=== PATIENT | male | born 1950 | race Caucasian/White ===

== ENCOUNTER → 2017-04-15 | Day surgery (SDC) | payer BC ==
[~2017-04-15] MED LIST: ALLOPURINOL PO; ALLOPURINOL300 MG PO; AMLODIPINE BESY10 MG PO; ASCRIPTIN PO; ASPIR 8181 MG PO; ATENOLOL50 MG PO; CELEBREX200 MG PO; FENTANYL CITRATE/PF 100MCG/2 ML INJ ONE; FLEXERIL10 MG PO; GLIMEPIRIDE4 MG PO; GLUCOSAMINE PO; HYDROCHLOROTHIA25 MG PO; LIPITOR40 MG PO; LISINOPRIL40 MG PO; MIDAZOLAM HCL 2 MG/2 ML VIAL ONE; NORCO 10-325 T1 EACH PO; OR PHACO EYE KIT ONE; PREOP PHACO EYE KIT ONE; SKELAXIN800 MG PO
--- NOTE | 2017-04-16 09:11 | Operative Report ---
DATE OF PROCEDURE: April 15, 2017 PREOPERATIVE DIAGNOSIS: Visually significant cataract to the right eye. POSTOPERATIVE DIAGNOSIS: Visually significant cataract to the right eye. PROCEDURE: Complicated phacoemulsification with posterior chamber intraocular lens. ANESTHESIA: MAC. COMPLICATIONS: None. LENS: Braulio SN60WF, 17.5-diopter lens. PROCEDURE IN DETAIL: The patient was taken to the operating room where he had tetracaine 0.5% drops placed in the eye. The patient's eye was then prepped and draped in the usual sterile ophthalmic way. A lid speculum was placed in the eye. A side-port incision was made, and 0.2 mL of 1% lidocaine preservative free was injected in the anterior chamber. Secondary to the patient being on Flomax and poor dilation, a Malyugin ring was used to secure and dilate the pupil. Once this was in place, viscoelastic was placed in the anterior chamber. A keratome was used to make a temporal clear cornea incision. A cystotome and Utrata forceps were used to create an anterior capsulorrhexis without any complications. Hydrodissection and hydrodelineation were then performed, and a good fluid wave was noted. A phacoemulsification probe was placed in the eye, and the nucleus was phacoemulsified using the [id number]-yrt-[id number] technique. Irrigation and aspiration handpiece was then used to remove any residual cortical material. Viscoelastic was placed in the capsular bag. An Braulio SN60WF, 17.5-diopter lens was placed into the bag without any complications. The Malyugin ring was then removed. The irrigation and aspiration handpiece was used to remove any residual viscoelastic material from within the eye. Miostat was injected in the anterior chamber. The wound was checked to make sure there was no evidence of leakage. Two drops of Vigamox were placed in the eye, along with patch and Herndon shield. The patient tolerated the procedure well and will be seen in my office tomorrow. Job#: [id number]
== END | disposition home or self-care (01) ==
LOC: OR 10:00
PROVIDERS: ATTEND Ophthalmology
DX: H25.11 Age-related nuclear cataract, right eye (principal); I10 Essential (primary) hypertension; E11.9 Type 2 diabetes mellitus without complications; E78.5 Hyperlipidemia, unspecified; M10.9 Gout, unspecified; E66.01 Morbid (severe) obesity due to excess calories; G47.30 Sleep apnea, unspecified; D29.1 Benign neoplasm of prostate; Z79.82 Long term (current) use of aspirin; Z68.41 Body mass index [BMI] 40.0-44.9, adult
CPT/HCPCS: 66982; J2250; V2632

== ENCOUNTER → 2017-12-04 | Outpatient (CLI) | payer BC ==
[~2017-12-04] MED LIST changes: -FENTANYL CITRATE/PF 100MCG/2 ML INJ ONE; -MIDAZOLAM HCL 2 MG/2 ML VIAL ONE; -OR PHACO EYE KIT ONE; -PREOP PHACO EYE KIT ONE
--- NOTE | 2017-12-04 13:00 | Diagnostic Imaging Report ---
PROCEDURE:TESTICULAR DOPPLER ULTRASOUND COMPARISON:None. 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 Enrique Lazaro M.D. Dictated by: Enrique Lazaro M.D. on 12/04/2017 at 13:06 Electronically approved by: Enrique Lazaro M.D. on 12/04/2017 at 13:06
--- NOTE | 2017-12-04 13:00 | Diagnostic Imaging Report ---
PROCEDURE:TESTICULAR ULTRASOUND COMPARISON:None. 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 Lump in superior left testicle for 2 weeks TECHNIQUE: Whyte-scale and color doppler images of the testicles and scrotal contents were obtained. Duplex imaging with spectral waveform analysis was performed of the testicular arteries and veins. FINDINGS: RIGHT SCROTUM: Testicle: 3.5 x 3.0 x 3.6 cm. Normal echogenicity. Normal vascularity. No focal lesions. Epididymal head: 1.4 x 1.0 x 1.0 cm. Normal echogenicity. Normal vascularity. 0.5 x 0.4 x 0.8 cm cystic, anechoic lesion in the epididymal head. Hydrocele: None Varicocele: None LEFT SCROTUM: Testicle: 5.1 x 2.5 x 4.0 cm. Normal echogenicity. Normal vascularity. No focal lesions. Epididymal head: 1.8 x 1.1 x 1.2 cm. Normal echogenicity. Normal vascularity. 0.7 x 0.4 x 0.8 cm cystic, anechoic lesion in the left epididymal head. Hydrocele: None Varicocele: A left varicocele is identified. Normal bilateral arterial and venous flow is documented. Overlying skin is unremarkable. No evidence of inguinal hernia. CONCLUSION: 1. Left varicocele. 2. 0.8 cm right and 0.8 cm left epididymal head cysts versus spermatoceles. 3. Normal bilateral testicular size, and echogenicity. No evidence of torsion. Enrique Lazaro M.D. Dictated by: Enrique Lazaro M.D. on 12/04/2017 at 13:05 Electronically approved by: Enrique Lazaro M.D. on 12/04/2017 at 13:05
== END ==
LOC: US 11:50
PROVIDERS: ATTEND Urology
DX: D40.10 Neoplasm of uncertain behavior of unspecified testis (principal)
CPT/HCPCS: 76870; 93976

== ENCOUNTER 2018-02-02 03:11 | Observation (INO) | payer BC ==
[~2018-02-02] VITALS: Ht 177.8 cm; Wt 143.4 kg
[2018-02-02] VITALS (7 sets, daily range): BP systolic 120–134; BP diastolic 60–73
[2018-02-02] MEDS ORDERED: PANTOPRAZOLE 40 MG 10ML VIAL IV STA (03:19)
[2018-02-02] MEDS ORDERED: ASPIRIN 81 MG CHEW TAB PO STA (03:19)
[2018-02-02] MEDS ORDERED: ONDANSETRON HCL INJ 2 MG/ML VIAL IV STA (03:19)
[2018-02-02] MEDS ORDERED: MORPHINE SULFATE 2 MG/ML SYR IV STA ×2 (03:19→04:32)
[2018-02-02] MEDS ORDERED: SODIUM CHLORIDE 0.9% 1000ML 1,000 ML IV STA (03:19)
[2018-02-02 03:36] LABS: BASOPHILS # (AUTO) 0.1 (0.0-0.1); BASOPHILS % 0.5 % (0.0-1.0); EOSINOPHILS % 6.1 % (0.0-6.0); HEMATOCRIT 48.4 % (38.2-49.6); HEMOGLOBIN 16.1 g/dL (14.0-18.0); LYMPHOCYTES # (AUTO) 1.8 (1.0-3.2); LYMPHOCYTES % 11.4 % (18.0-39.1); MEAN CORPUSCULAR HEMOGLOBIN 30.4 pg (28-32); MEAN CORPUSCULAR HGB CONC 33.3 g/dL (31-35); MEAN CORPUSCULAR VOLUME 91.5 fL (81-99); MONOCYTES # (AUTO) 1.9 (0.2-0.8); MONOCYTES % 11.7 % (4.4-11.3); NEUTROPHILS # (AUTO) 11.3 (2.1-6.9); NEUTROPHILS % 69.9 % (38.7-80.0); PLATELET COUNT 222 x10e3/uL (140-360); RED BLOOD COUNT 5.29 x10e6/uL (4.3-5.7); RED CELL DISTRIBUTION WIDTH 13.9 % (11.7-14.4)
[2018-02-02 03:48] LABS: INR 0.87; PROTHROMBIN TIME 12.7 seconds (11.9-14.5)
[2018-02-02 03:49] LABS: PARTIAL THROMBOPLASTIN TIME 26.6 seconds (23.8-35.5)
[2018-02-02 03:56] LABS: ALANINE AMINOTRANSFERASE 35 IU/L (0-55); ALBUMIN/GLOBULIN RATIO 1.1 (0.8-2.0); ALKALINE PHOSPHATASE 65 IU/L (40-150); ANION GAP 10.4 mmol/L (8-16); BLOOD UREA NITROGEN 14 mg/dL (7-26); BUN/CREATININE RATIO 17 (6-25); CALCIUM 9.6 mg/dL (8.4-10.2); CARBON DIOXIDE 32 mmol/L (22-29); CHLORIDE 97 mmol/L (98-107); CREATINE KINASE 406 IU/L (30-200); CREATININE, SERUM 0.82 mg/dL (0.72-1.25); EST GLOMERULAR FILTRATION RATE > 60 ML/MIN (60-); GLUCOSE 163 mg/dL (74-118); POTASSIUM 3.4 mmol/L (3.5-5.1); SODIUM 136 mmol/L (136-145)
[2018-02-02 04:08] LABS: B-TYPE NATRIURETIC PEPTIDE2 65.5 pg/mL (0-100)
[2018-02-02 04:08] LABS: AMYLASE 63 U/L (25-125); LIPASE 23 U/L (8-78)
[2018-02-02] MEDS ORDERED: KETOROLAC TROMETHAMINE 30 MG/ML VIAL IV STA (04:32)
[2018-02-02] MEDS ORDERED: MORPHINE SULFATE 2 MG/ML SYR IV PRN (05:00)
[2018-02-02] MEDS ORDERED: ONDANSETRON HCL INJ 2 MG/ML VIAL IV PRN (05:00)
[2018-02-02] MEDS ORDERED: DEXTROSE 50% SYRINGE 50 ML IV PRN (05:00)
[2018-02-02] MEDS ORDERED: KCL 20MEQ/.9 SOD CHL 1,000 ML IV ONE (05:00)
[2018-02-02] MEDS ORDERED: ALLOPURINOL300 MG PO (05:08)
[2018-02-02] MEDS ORDERED: HYDROCHLOROTHIA50 MG PO (05:08)
[2018-02-02] MEDS ORDERED: ATENOLOL100 MG PO (05:08)
[2018-02-02] MEDS ORDERED: TAMSULOSIN HCL0.4 MG PO (05:08)
[2018-02-02] MEDS ORDERED: ATORVASTATIN CA80 MG PO (05:08)
[2018-02-02 05:10] LABS: CLARITY,URINE CLEAR (CLEAR); COLOR,URINE YELLOW (YELLOW); KETONES,URINE NEGATIVE (NEGATIVE); LEUKOCYTE ESTERASE ,URINE NEGATIVE (NEGATIVE); NITRITE,URINE NEGATIVE (NEGATIVE); PROTEIN,URINE DIPSTICK NEGATIVE (NEGATIVE)
[2018-02-02 05:11] LABS: BILIRUBIN,URINE NEGATIVE (NEGATIVE); URINE UROBILINOGEN 0.2 mg/dL (0.2 - 1)
[2018-02-02] MEDS ORDERED: GLUCOSAMINE HC500 MG PO (05:17)
[2018-02-02] MEDS ORDERED: LISINOPRIL20 MG PO (05:17)
[2018-02-02] MEDS ORDERED: ASPIR 8181 MG PO (05:17)
[2018-02-02] MEDS ORDERED: LIPITOR10 MG PO (05:17)
[2018-02-02 05:32] LABS: BACTERIA,URINE RARE /HPF; EPITHELIAL CELLS,URINE RARE /LPF
--- NOTE | 2018-02-02 05:33 | Diagnostic Imaging Report ---
EXAMINATION: CHEST SINGLE (PORTABLE) INDICATION: Chest pain. COMPARISON: None FINDINGS: TUBES and LINES: None. LUNGS: Lungs are not well inflated. Interlobular septi thickening. There is mild prominence of the central pulmonary vasculature, consistent with pulmonary venous congestion. PLEURA: No pleural effusion or pneumothorax. HEART AND MEDIASTINUM: Cardiac size is moderately enlarged. There are atherosclerotic calcifications within the aorta. BONES AND SOFT TISSUES: No acute osseous lesion. Soft tissues are unremarkable. UPPER ABDOMEN: No free air under the diaphragm. IMPRESSION: Findings are compatible with moderate enlargement of the cardiac silhouette and central vascular congestion. Signed by: Dr. Dharmesh Morales M.D. on 02/02/2018 5:30 AM
--- NOTE | 2018-02-02 05:35 | Diagnostic Imaging Report ---
EXAM: CT Chest WITH contrast 02/02/2018 4:09 AM INDICATION: Pulmonary embolism COMPARISON: Chest x-ray on 02/02/2018 TECHNIQUE: Chest was scanned utilizing a multidetector helical scanner from the lung apex through the level of the adrenal glands without administration of IV contrast. Coronal and sagittal reformations were obtained. Routine protocol was performed. IV CONTRAST: 83 mL of Isovue-370 RADIATION DOSE: Total DLP: 611.83 mGy*cm Estimated effective dose: (DLP x 0.014 x size factor) mSv COMPLICATIONS: None FINDINGS: LINES/ TUBES: None. LUNGS AND AIRWAYS: There is bibasilar atelectasis. Airways are normal. PLEURA: The pleural spaces are clear. HEART AND MEDIASTINUM: The thyroid gland is normal. No mediastinal, hilar or axillary lymphadenopathy. The heart is normal in size.. There is a small pericardial effusion. There are moderate atherosclerotic calcifications in the aorta and coronary arteries. UPPER ABDOMEN: Limited non-contrast views of the upper abdomen show no abnormality within the visualized liver, spleen, pancreas, or kidneys. The adrenal glands are normal. BONES: There are degenerative changes in the thoracic spine. SOFT TISSUES: Unremarkable. IMPRESSION: 1. No evidence of pulmonary embolism. 2. Minimal bibasilar atelectasis. 3. Mild pericardial effusion. Signed by: Dr. Dharmesh Morales M.D. on 02/02/2018 5:32 AM
[2018-02-02] MEDS ORDERED: ZYRTEC10 M3 PO (06:40)
[2018-02-02] MEDS ORDERED: LIPITOR20 MG PO (06:41)
[2018-02-02] MEDS ORDERED: IOPAMIDOL 370 MG/ML 200 ML INFUS..BTL INJ ONE (07:16)
[2018-02-02] MEDS ORDERED: SODIUM CHLORIDE 0.9% 50ML 50 ML ONE (07:16)
[2018-02-02 07:31] LABS: CREATINE KINASE 287 IU/L (30-200)
[2018-02-02] MEDS: INSULIN REGULAR, HUMAN 100 UNIT/1 ML 3ML VIAL SQ SCH ×4 (08:00→21:00)
[2018-02-02] MEDS ORDERED: POTASSIUM CHLORIDE 20MEQ/100ML 100 ML IV ONE (08:00)
[2018-02-02] MEDS: ASPIRIN 81 MG ENTERIC COATED PO SCH (09:00)
[2018-02-02] MEDS: FAMOTIDINE 20 MG/2 ML VIAL IV SCH ×2 (09:25→20:03)
[2018-02-02] MEDS ORDERED: REGADENOSON 0.4 MG/5 ML SYR IV ONE (10:25)
--- NOTE | 2018-02-02 14:37 | Consultation ---
DATE OF CONSULTATION: February 02, 2018 CARDIOLOGY CONSULTATION REQUESTING PHYSICIAN: Dr. Arpita Hernandez. REASON FOR CONSULTATION: Chest pain. HISTORY OF PRESENT ILLNESS: This is a 68-year-old man with history of diabetes mellitus, hypertension, and hyperlipidemia who presents with complaints of chest tightness and shortness of breath. He was in his usual state of health until last night when he developed chest tightness. This was 8/10 in severity and associated with shortness of breath, subjective fever and chills. He reports this lasted several hours until he presented to the ER. Of note, the patient reports the pain was better with standing up and worse with laying down as well as deep inspiration. She denied any recent sick contacts or recent travel. There was no worsening of his chest discomfort with activity. REVIEW OF SYSTEMS: Negative except as per HPI. PAST MEDICAL HISTORY: 1. Diabetes mellitus. 2. Hypertension. 3. Hyperlipidemia. PAST SURGICAL HISTORY: 1. Right shoulder surgery. 2. Knee surgery. 3. Cataract surgery. ALLERGIES: NO KNOWN DRUG ALLERGIES. MEDICATIONS: Please see medication list. SOCIAL HISTORY: He quit smoking in 1978, previously smoked 1-2 packs a day for 13 years. FAMILY HISTORY: Pertinent for father with congestive heart failure. PHYSICAL EXAMINATION VITAL SIGNS: Temperature 100 degrees, pulse 88, respiratory rate 19, blood pressure 123/61, oxygen saturation 95% on room air. GENERAL: A morbidly obese gentleman in no acute distress, well-nourished, well-developed. HEENT: Normocephalic, atraumatic. Pupils are equal. No scleral icterus. NECK: Supple. No thyromegaly or cervical lymphadenopathy. No carotid bruits. LUNGS: Clear to auscultation bilaterally. No wheezes or crackles. CARDIOVASCULAR: Normal rate, regular rhythm. No murmurs. Normal S1 and S2. ABDOMEN: Soft and nontender. EXTREMITIES: No edema. NEUROLOGIC: Nonfocal exam. LABORATORY DATA: Sodium 136, potassium 3.4, chloride 97, CO2 of 32, BUN 14, creatinine 0.82. CK is 406. Troponin less than 0.001. BNP 65.5. D-dimer 0.35. WBC 16.19, hemoglobin 16.1, hematocrit 48.4, platelets 222,000. CT chest with no evidence of pulmonary embolism. Minimal bibasilar atelectasis, mild pericardial effusion. EKG sinus rhythm with 1st-degree AV block, regular sinus rhythm, RSR' pattern in V1 suggests right ventricular conduction delay, cannot rule out anterior infarct, age undetermined. IMPRESSION 1. Chest pain. 2. Leukocytosis. 3. Low-grade fever. 4. Diabetes mellitus. 5. Hypertension. 6. Hyperlipidemia. RECOMMENDATIONS: No evidence of myocardial infarction on serial cardiac biomarkers. Given risk factors, nuclear stress test is warranted to evaluate for ischemia. We will review the images once they are available. Further recommendations to follow. Echocardiogram has been done and will review. Monitor the patient on telemetry. Continue home cardiac medications in the meantime. Thank you for this consult. Will continue to follow. Job#: [id number] GH ARTEMIO
[2018-02-02 17:00] LABS: CREATINE KINASE 178 IU/L (30-200)
--- NOTE | 2018-02-02 19:23 | Cardiology Report ---
DATE OF STUDY: February 02, 2018 CARDIOLOGY STRESS REPORT PROCEDURE: Rest-stress single-isotope SPECT imaging with pharmacologic stress and gated SPECT imaging. INDICATIONS: Chest pain. PROCEDURE: Pharmacologic stress testing was performed with regadenoson per protocol. The heart rate was 84 beats per minute at rest and increased to 96 beats per minute during the pharmacologic infusion. The maximum blood pressure was 147/65 mmHg. The patient did not develop any significant symptoms. The resting electrocardiogram demonstrated normal sinus rhythm with right ventricular conduction delay. There were no ST-segment changes consistent with myocardial ischemia. Next, myocardial perfusion imaging was performed at rest following the injection of 11 mCi of tetrofosmin. At peak pharmacologic effect, the patient was injected with 33 mCi of tetrofosmin. Gated poststress tomographic imaging was performed. FINDINGS: The overall quality of the study is fair. Attenuation artifact was present. The left ventricular cavity was noted to be normal size on the rest and stress studies. SPECT images images demonstrate homogenous tracer distribution throughout the myocardium. Gated SPECT imaging reveals normal myocardial thickening and wall motion. Left ventricular ejection fraction was calculated to be 56%. IMPRESSION: Myocardial perfusion imaging is normal. Overall left ventricular systolic function was normal without regional wall motion abnormalities. Job#: [id number]
[2018-02-03] VITALS: BP 139/63
[2018-02-03 04:00] VITALS: BP 132/69
[2018-02-03 07:01] LABS: BASOPHILS % 0.3 % (0.0-1.0); EOSINOPHILS # (AUTO) 0.4 (0.0-0.4); EOSINOPHILS % 2.7 % (0.0-6.0); HEMATOCRIT 41.5 % (38.2-49.6); HEMOGLOBIN 13.6 g/dL (14.0-18.0); LYMPHOCYTES % 14.4 % (18.0-39.1); MEAN CORPUSCULAR HEMOGLOBIN 30.4 pg (28-32); MEAN CORPUSCULAR HGB CONC 32.8 g/dL (31-35); MEAN CORPUSCULAR VOLUME 92.6 fL (81-99); MONOCYTES % 14.1 % (4.4-11.3); NEUTROPHILS # (AUTO) 9.4 (2.1-6.9); NEUTROPHILS % 68.1 % (38.7-80.0); PLATELET COUNT 145 x10e3/uL (140-360); RED BLOOD COUNT 4.48 x10e6/uL (4.3-5.7); RED CELL DISTRIBUTION WIDTH 14.3 % (11.7-14.4)
[2018-02-03 08:00] VITALS: BP 136/60
[2018-02-03] MEDS: FAMOTIDINE 20 MG/2 ML VIAL IV SCH (08:00)
[2018-02-03] MEDS: ASPIRIN 81 MG ENTERIC COATED PO SCH (08:00)
[2018-02-03 08:25] LABS: ALANINE AMINOTRANSFERASE 25 IU/L (0-55); ALBUMIN 2.9 g/dL (3.5-5.0); ALBUMIN/GLOBULIN RATIO 0.9 (0.8-2.0); ALKALINE PHOSPHATASE 52 IU/L (40-150); ANION GAP 18.5 mmol/L (8-16); BLOOD UREA NITROGEN 14 mg/dL (7-26); BUN/CREATININE RATIO 18 (6-25); CALCIUM 8.3 mg/dL (8.4-10.2); CARBON DIOXIDE 20 mmol/L (22-29); CHLORIDE 102 mmol/L (98-107); CHOLESTEROL 108 MD/DL (0-199); CREATININE, SERUM 0.76 mg/dL (0.72-1.25); EST GLOMERULAR FILTRATION RATE > 60 ML/MIN (60-); GLUCOSE 117 mg/dL (74-118); HDL CHOLESTEROL 53 MG/DL (40-60); LDL CHOLESTEROL 46 MG/DL (60-130); POTASSIUM 3.5 mmol/L (3.5-5.1); SODIUM 137 mmol/L (136-145); TRIGLYCERIDES 46 MG/DL (0-149)
[2018-02-03] MEDS ORDERED: IBUPROFEN 600 MG TAB PO PRN (09:30)
[2018-02-03] MEDS ORDERED: COLCHICINE 0.6 MG TAB PO SCH (09:30)
[2018-02-03] MEDS ORDERED: PANTOPRAZOLE SOD 40 MG TABEC PO SCH (09:30)
[2018-02-03] MEDS ORDERED: IBUPROFEN 400 MG TAB PO PRN (09:45)
--- NOTE | 2018-02-03 11:54 | Diagnostic Imaging Report ---
EXAM: Right upper quadrant abdominal ultrasound INDICATION: Right upper quadrant pain COMPARISON: None. TECHNIQUE: Transverse and longitudinal images of the right upper quadrant abdomen were obtained FINDINGS: Liver: Size: 20.8 cm in the right midclavicular line, normal Appearance: Limited visualization of the right lobe due to overlying gas. Normal echogenicity, smooth contour Mass: No focal masses Gallbladder: Partially decompressed. No evidence of pericholecystic fluid or stone. Negative reported sonographic Sheehan's sign. Mildly thick wall measuring 5 mm. Bile Ducts: Intrahepatic Ducts: No dilatation Extrahepatic Ducts: Common bile duct measures 0.5 cm, no dilatation Pancreas: Visualized portions of the pancreatic head, neck and proximal body are normal. Kidney: The right kidney measures 11.2 cm without evidence of hydronephrosis or stone. There is a right renal simple appearing peripelvic cyst measuring up to 1.8 cm. Vessels: Aorta: Not well visualized. Inferior Vena Cava: Visualized portions are normal Main Portal Vein: 1 cm, normal size with hepatopetal flow. Free Fluid: No ascites or pleural effusion IMPRESSION: No specific sonographic evidence of cholecystitis or stone. Mildly thick walled gallbladder, which could reflect volume status. Hepatomegaly. Signed by: Dr. Elsy Dong MD on 02/03/2018 11:50 AM
[2018-02-03 12:00] VITALS: BP 168/79
--- NOTE | 2018-02-03 12:38 | Progress Note ---
DATE: February 03, 2018 CARDIOLOGY PROGRESS NOTE SUBJECTIVE: The patient reports his breathing is better. OBJECTIVE VITAL SIGNS: Temperature 98.3 degrees, pulse 68, respiratory rate 16, blood pressure 136/60, oxygen saturation 92%. GENERAL: Obese man in no acute distress. Awake and alert. LUNGS: Clear to auscultation bilaterally. No wheezes or crackles. CARDIOVASCULAR: Normal rate, regular rhythm. No murmur. Normal S1 and S2. ABDOMEN: Soft, nontender. EXTREMITIES: No edema. CARDIAC MEDICATIONS: Aspirin 81 mg p.o. daily. LABS: WBC 13.79, hemoglobin 13.6, hematocrit 41.5, platelets 145. Sodium 137, potassium 3.5, chloride 102, CO2 20, BUN 14, creatinine 0.76. CRP 98.8. Cholesterol 108, LDL 46, HDL 53, triglycerides 46. TELEMETRY: Normal sinus rhythm. IMPRESSION 1. Acute pericarditis. 2. Diabetes mellitus. 3. Hypertension. 4. Hyperlipidemia. RECOMMENDATIONS: Nuclear stress test without evidence of ischemia. Echocardiogram did have a small pericardial effusion which was also seen on CT of the chest. Given elevated CRP and symptoms description, patient most likely has acute pericarditis. We will start patient on ibuprofen and colchicine. Start patient on Protonix as well given high-dose NSAID use. Patient was instructed to follow up in the office. Once his CRP normalizes, we will begin weaning ibuprofen therapy. He will remain on colchicine for a total of 3 months to reduce the risk of recurrence. Plan is for outpatient echocardiogram in 3 months to assess resolution of pericardial effusion. Once that is resolved, we will proceed with cardiac catheterization for further evaluation. Thank you for this consult. We will continue to follow. Job#: [id number]
[2018-02-03 12:51] LABS: ANISOCYTOSIS SLIGHT; BAND NEUTROPHILS % (MANUAL) 1 %; EOSINOPHILS % (MANUAL) 5 % (0-7); HYPOCHROMASIA SLIGHT; LYMPHOCYTES % (MANUAL) 10 % (19-48); MONOCYTES % (MANUAL) 12 % (3.4-9.0); NEUTROPHILS % (MANUAL) 65 % (40-74); PLATELET ESTIMATE SLIGHTLY DECREASED; PLATELET MORPHOLOGY COMMENT NORMAL; RBC MORPHOLOGY COMMENT NORMAL
[2018-02-03] MEDS ORDERED: IBUPROFEN 400 MG TAB PO SCH (15:00)
--- NOTE | 2018-02-03 18:18 | Discharge Summary ---
Kristopher Mccarthy is a 68-year-old male who presented with chest pains on admission. Sodium was 136, potassium 3.4, chloride 97, CO2 of 32, BUN 14, creatinine 0.8, glucose slightly high at 163, hemoglobin 16.1, hematocrit 48.4, white count of 16,100, platelets 222,000. INR 0.87, bilirubin 1.0, ____, SGPT 35, alkaline phosphatase 65. EKG was reported normal. Troponins done 3 times were reported essentially normal. Echocardiogram reported normal. Nuclear scan reported normal. The potassium supplement brought the potassium up to 3.5. The white count dropped to 13.7. I had suggested, Dr. Bowles, the optical laboratory mechanic, to do a cardiac cath. She is sure that this is pericarditis. There was some pericardial effusion, and subsequently the patient was sent home on: 1. Allopurinol 300 mg daily. 2. Amlodipine 10 mg daily. 3. Aspirin 81 mg daily. 4. Atenolol 50 mg daily. 5. Atorvastatin 80 mg daily. 6. Hydrochlorothiazide 50 mg daily. 7. Lisinopril 20 mg daily. 8. Flomax 0.[address] Bowles was also going to put him on Colchicine and NSAIDs. I will follow the patient along with cardiology as an outpatient. Ultrasound of the gallbladder was done, which was reported essentially normal. FINAL IMPRESSION 1. Chest pain syndrome. 2. Pericarditis. 3. Pericardial effusion. 4. Hypertension. 5. History of gout. 6. History of hyperlipidemia. 7. History of diabetes mellitus. The patient will be seen by me as an outpatient. DAVE DRAKE MD Job#: [id number]
--- NOTE | 2018-02-03 20:58 | History and Physical ---
HISTORY OF PRESENT ILLNESS: Marquez Mccarthy is a 68-year-old white male who presented to the ER with history of chest pain, subsequently seen, admitted for further evaluation and treatment. SOCIAL HISTORY: Noncontributory. FAMILY HISTORY: Noncontributory. ALLERGIES: REPORTED NONE. MEDICATIONS: At this time consists of: 1. Aspirin. 2. Pepcid. 3. Insulin. 4. Morphine. 5. Ondansetron. REVIEW OF SYSTEMS: HEENT: Normal. CARDIAC: History of hypertension. RESPIRATORY: Normal. GI: Normal. : Normal. MUSCULOSKELETAL: Normal. SKIN AND BREASTS: Normal. NEUROENDOCRINE: History of diabetes mellitus. PHYSICAL EXAMINATION: GENERAL: A morbidly obese male. HEENT: No palpable adenopathy. HEART: Within normal limits. LUNGS: Clear. ABDOMEN: Obese. RECTAL: Deferred. CENTRAL NERVOUS SYSTEM: Essentially normal. EXTREMITIES: Essentially normal. IMPRESSION: 1. Chest pain syndrome. 2. Hypertension. 3. Diabetes mellitus. 4. Morbid obesity. 5. Hypokalemia of 3.4. PLAN: To have a cardiology consultation. Ultrasound of the gallbladder. Job#: [id number]
--- OUTSIDE RECORDS SUMMARY | 2018-02-10 11:52 | XMS REPORT ---
Author Author [facility] Address Unknown Phone Unavailable Care Team Providers Care Field Account Manager Name Role Phone DAVE DRAKE Unavailable Unavailable JUNE CASSIDY Unavailable Unavailable Problems This patient has no known problems. Allergies, Adverse Reactions, Alerts This patient has no known allergies or adverse reactions. Medications This patient has no known medications. Results Test Description Test Time Test Comments Text Results Atomic Results Result Comments US GALLBLADDER 2018-02-03 11:46:00 [place] [address] Patient Name: PETER GONGORA MR #: [id number] : 1950 Age/Sex: 68/M Req #: [id number] [facility] Physician: DAVE DRAKE MD Ordered by: DAVE DRAKE MD Report #: [id number] Location: MED/SURG2 Room/Bed: [facility] Procedure: [id number] US/US GALLBLADDER Exam Date: Exam Time: REPORT STATUS: Signed EXAM: Right upper quadrant abdominal ultrasound INDICATION: Right upper quadrant pain COMPARISON: None. TECHNIQUE: Transverse and longitudinal images of the right upper quadrant abdomen were obtained FINDINGS: Liver: Size: 20.8 cm in the right midclavicular line, normal Appearance: Limited visualization of the right lobe due to overlying gas. Normal echogenicity, smooth contour Mass: No focal masses Gallbladder: Partially decompressed. No evidence of pericholecystic fluid or stone. Negative reported sonographic Sheehan's sign. Mildly thick wall measuring 5 mm. Bile Ducts: Intrahepatic Ducts: No dilatation Extrahepatic Ducts: Common bile duct measures 0.5 cm, no dilatation Pancreas: Visualized portions of the pancreatic head, neck and proximal body are normal. Kidney: The right kidney measures 11.2 cm without evidence of hydronephrosis or stone. There is a right renal simple appearing peripelvic cyst measuring up to 1.8 cm. Vessels: Aorta: Not well visualized. Inferior Vena Cava: Visualized portions are normal Main Portal Vein: 1 cm, normal size with hepatopetal flow. Free Fluid: No ascites or pleural effusion IMPRESS ION: No specific sonographic evidence of cholecystitis or stone. Mildly thick walled gallbladder, which could reflect volume status. Hepatomegaly. Signed by: Dr. Leonor Calvillo MD on 02/03/2018 11:50 AM Dictated By: LEONOR CALVILLO MD 1150 Transcribed By: NIGEL on 02/03/18 1150 COPY TO: DAVE DRAKE MD Stress Test - Treadmill ONLY 2018-02-02 18:52:00 [place] [id number] Patient Name : PETER GONGORA MR #: [id number] : 1950 Age/Sex: 68/M Adm Physician : DAVE RDAKE MD Admit Date : 02/02/18 Location : [facility]/SURG2 Room/Bed : [facility] REPORT: Cardiology Report DATE OF STUDY: February 02, 2018 CARDIOLOGY STRESS REPORT PROCEDURE: Rest-stress single-isotope SPECT imaging with pharmacologic stress and gated SPECT imaging. INDICATIONS: Chest pain. PROCEDURE: Pharmacologic stress testing was performed with regadenoson per protocol. The heart rate was 84 beats per minute at rest and increased to 96 beats per minute during the pharmacologic infusion. The maximum blood pressure was 147/65 mmHg. The patient did not develop any significant symptoms. The resting electrocardiogram demonstrated normal sinus rhythm with right ventricular conduction delay. There were no ST-segment changes consistent with myocardial ischemia. Next, myocardial perfusion imaging was performed at rest following the injection of 11 mCi of tetrofosmin. At peak pharmacologic effect, the patient was injected with 33 mCi of tetrofosmin. Gated poststress tomographic imaging was performed. FINDINGS: The overall quality of the study is fair. Attenuation artifact was present. The left ventricular cavity was noted to be normal size on the rest and stress studies. SPECT images images demonstrate homogenous tracer distribution throughout the myocardium. Gated SPECT imaging reveals normal myocardial thickening and wall motion. Left ventricular ejection fraction was calculated to be 56%. IMPRESSION: Myocardial perfusion imaging is normal. Overall left ventricular systolic function was normal without region al wall motion abnormalities. Job#: [id number] Signature Date Dictated By: VEENA TREADWELL MD Transcribed By: [facility] on 02/02/18 <Electronically signed by VEENA TREADWELL MD><<Signature on File>>02/09/18 0036 COPY TO: CT CHEST W 2018-02-02 05:30:00 [place] [address] Patient Name: PETER GONGORA MR #: [id number] : 1950 Age/Sex: 68/M Req #: [id number] [facility] Physician: Ordered by: JOCELINE ZAMARRIPA MD Report #: [id number] Location: ER Room/Bed: Procedure: [id number] CT/CT CHEST W Exam Date: 02/02/18 Exam Time: 0430 REPORT STATUS: Signed EXAM: CT Chest WITH contrast 02/02/2018 4:09 AM INDICATION: Pulmonary embolism COMPARISON: Chest x-ray on 02/02/2018 TECHNIQUE: Chest was scanned utilizing a multidetector helical scanner from the lung apex through the level of the adrenal glands without administration of IV contrast. Coronal and sagittal reformations were obtained. Routine protocol was performed. IV CONTRAST: 83 mL of Isovue-370 RADIATION DOSE: Total DLP: 611.83 mGy*cm Estimated effective dose: (DLP x 0.014 x size factor) mSv COMPLICATIONS: None FINDINGS: LINES/ TUBES: None. LUNGS AND AIRWAYS: There is bibasilar atelectasis. Airways are normal. PLEURA: The pleural spaces are clear. HEART AND MEDIASTINUM: The thyroid gland is normal. No mediastinal, hilar or axillary lymphadenopath y. The heart is normal in size.. There is a small pericardial effusion. There are moderate atherosclerotic calcifications in the aorta and coronary arteries. UPPER ABDOMEN: Limited non-contrast views of the upper abdomen show no abnormality within the visualized liver, spleen, pancreas, or kidneys. The adrenal glands are normal. BONES: There are degenerative changes in the thoracic spine. SOFT TISSUES: Unremarkable. IMPRESSION: 1. No evidence of pulmonary embolism. 2. Minimal bibasilar atelectasis. 3. Mild pericardial effusion. Signed by: Dr. Dharmesh Morales M.D. on 02/02/2018 5:32 AM Dictated By: DHARMESH SPARKS MD 1 Transcribed By: NIGEL on 02/02/18531 COPY TO: JOCELINE ZAMARRIPA MD CHEST SINGLE (PORTABLE) 2018-02-02 05:29:00 [place] [address] Patient Name: PETER GONGORA MR #: [id number] : 1950 Age/Sex: 68/M Req #: [id number] Adm Physician: Ordered by: JOCELINE ZAMARRIPA MD Report #: [id number] Location: ER Room/Bed: Procedure: [id number] DX/CHEST SINGLE (PORTABLE) Exam Date: 02/02/18 Exam Time: 0400 REPORT STATUS: Signed EXAMINATION: CHEST SINGLE (PORTABLE) INDICATION: Chest pain. COMPARISON: None FINDINGS: TUBES and LINES: None. LUNGS: Lungs are not well inflated. Interlobular septi thickening. There is mild prominence of the central pulmonary vasculature, consistent with pulmonary venous congestion. PLEURA: No pleural effusion or pneumothorax. HEART AND MEDIASTINUM: Cardiac size is moderately enlarged. There are atherosclerotic calcifications within the aorta. BONES AND SOFT TISSUES: No acute osseous lesion. Soft tissues are unremarkable. UPPER ABDOMEN: No free air under the diaphragm. IMPRESSION: Findings are compatible with moderate enlargement of the cardiac silhouette and central vascular congestion. Signed by: Dr. Dharmesh Morales M.D. on 02/02/2018 5:30 AM Dictated By: DHARMESH SPARKS MD 9 Transcribed By: NIGEL on 02/02/18529 COPY TO: JOCELINE ZAMARRIPA MD TESTICULAR DOPPLER [facility] 2017-12-04 13:06:00 [place] [address] Patient Name: PETER GONGORA MR #: [id number] : 1950 Age/Sex: 67/M Req #: [id number] Adm Physician: Ordered by: JUNE CASSIDY MD Report #: [id number] Location: Room/Bed: Procedure: US/US TESTICULAR DOPPLER LTD Exam Date: 12/04/17 Exam Time: 1220 REPORT STATUS: Signed PROCEDURE: TESTICULAR DOPPLER ULTRASOUND COMPARISON: None. 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 Shalini Lazaro M.D. Dictated by: Shalini Lazaro M.D. on 12/04/2017 at 13:06 Electronically approved by: Shalini Lazaro M.D. on 12/04/2017 at 13:06 Dictated By: SHALINI LAZARO MD 1306 Transcribed By: ALEX on 12/04/17 1306 COPY TO: JUNE CASSIDY MD US TESTICULAR 2017-12-04 13:05:00 [place] [address] Patient Name: PETER GONGORA MR #: [id number] : 1950 Age/Sex: 67/M Req #: [id number] Adm Physician: Ordered by: JUNE CASSIDY MD Report #: [id number] Location: US Room/Bed: Procedure: US/US TESTICULAR Exam Date: 12/04/17 Exam Time: 1220 REPORT STATUS: Signed PROCEDURE: TESTICULAR ULTRASOUND COMPARISON: None. 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 Lump in superior left testicle for 2 weeks TECHNIQUE: Whyte-scale and color doppler images of the testicles and scrotal contents were obtained. Duplex imaging with spectral waveform analysis was performed of the testicular arteries and veins. FINDINGS: RIGHT SCROTUM: Testicle: 3.5 x 3.0 x 3.6 cm. Normal echogenicity. Normal vascularity. No focal lesions. Epididymal head: 1.4 x 1.0 x 1.0 cm. Normal echogenicity. Normal vascularity. 0.5 x 0.4 x 0.8 cm cystic, anechoic lesion in the epididymal head. Hydrocele: None Varicocele: None LEFT SCROTUM: Testicle: 5.1 x 2.5 x 4.0 cm. Normal echogenicity. Normal vascularity. No focal lesions. Epididymal head: 1.8 x 1.1 x 1.2 cm. Normal echogenicity. Normal vascularity. 0.7 x 0.4 x 0.8 cm cystic, anechoic lesion in the left epididymal head. Hydrocele: None Varicocele: A left varicocele is identified. Normal bilateral arterial and venous flow is documented. Overlying skin is unremarkable. No evidence of inguinal hernia. CONCLUSION: 1. Left varicocele. 2. 0.8 cm right and 0.8 cm left epididymal head cysts versus spermatoceles. 3. Normal bilateral testicular size, and echogenicity. No evidence of torsion. Shalini Lazaro M.D. Dictated by: Shalini Lazaro M.D. on 12/04/2017 at 13:05 Electronically approved by: Shalini Lazaro M.D. on 12/04/2017 at 13:05 Dictated By: SHALINI LAZARO MD 1305 Transcribed By: ALEX on 12/04/17 1305 COPY TO: JUNE CASSIDY MD
[2018-04-15] MEDS ORDERED: COLCRYS0.6 MG PO (13:18)
== END 2018-02-03 14:19 | disposition home or self-care (01) ==
LOC: ER 03:24 → MED/SURG2 06:06
PROVIDERS: ADMIT Internal Medicine Medical Oncology; ATTEND Internal Medicine Medical Oncology
DX: I30.9 Acute pericarditis, unspecified (principal); R07.2 Precordial pain; I10 Essential (primary) hypertension; E11.9 Type 2 diabetes mellitus without complications; E78.5 Hyperlipidemia, unspecified; E66.01 Morbid (severe) obesity due to excess calories; E87.6 Hypokalemia; Z79.4 Long term (current) use of insulin; D72.829 Elevated white blood cell count, unspecified; Z68.41 Body mass index [BMI] 40.0-44.9, adult; I31.3 Pericardial effusion (noninflammatory); M10.9 Gout, unspecified
CPT/HCPCS: 36415 ×2; 71045; 71260; 76705; 78452; 80053 ×2; 80061; 81001; 82150; 82550; 82553; 82948 ×2; 83605; 83690; 83735; 83880; 84484; 85025 ×2; 85379; 85610; 85730; 86140; 87040; 87086; 93005; 93017; 93306; 99284; A9502; G0378 ×2; J1885; J2270; J2405; J3480; J7030; Q9967; S0164

== ENCOUNTER → 2018-03-18 | Outpatient (CLI) | payer BC ==
[~2018-03-18] MED LIST changes: +ATENOLOL100 MG PO; +ATORVASTATIN CA80 MG PO; +COLCRYS0.6 MG PO; +GLUCOSAMINE HC500 MG PO; +HYDROCHLOROTHIA50 MG PO; +LIPITOR10 MG PO; +LIPITOR20 MG PO; +LISINOPRIL20 MG PO; +TAMSULOSIN HCL0.4 MG PO; +ZYRTEC10 M3 PO
[2018-03-18 14:04] LABS: ALANINE AMINOTRANSFERASE 21 IU/L (0-55); ALBUMIN 3.9 g/dL (3.5-5.0); ALBUMIN/GLOBULIN RATIO 1.1 (0.8-2.0); ALKALINE PHOSPHATASE 71 IU/L (40-150); ANION GAP 12.9 mmol/L (8-16); BLOOD UREA NITROGEN 16 mg/dL (7-26); BUN/CREATININE RATIO 20 (6-25); CARBON DIOXIDE 28 mmol/L (22-29); CHLORIDE 99 mmol/L (98-107); CREATININE, SERUM 0.82 mg/dL (0.72-1.25); EST GLOMERULAR FILTRATION RATE > 60 ML/MIN (60-); GLUCOSE 106 mg/dL (74-118); POTASSIUM 3.9 mmol/L (3.5-5.1); SODIUM 136 mmol/L (136-145)
== END ==
LOC: LAB 13:17
PROVIDERS: ATTEND Internal Medicine Interventional Cardiology
DX: I31.9 Disease of pericardium, unspecified (principal)
CPT/HCPCS: 36415; 80053; 86140

== ENCOUNTER → 2018-04-16 | Day surgery (SDC) | payer BC ==
[2018-04-15 13:49] LABS: BASOPHILS # (AUTO) 0.1 (0.0-0.1); BASOPHILS % 0.5 % (0.0-1.0); EOSINOPHILS # (AUTO) 0.9 (0.0-0.4); HEMATOCRIT 44.7 % (38.2-49.6); HEMOGLOBIN 14.5 g/dL (14.0-18.0); LYMPHOCYTES # (AUTO) 2.6 (1.0-3.2); LYMPHOCYTES % 21.2 % (18.0-39.1); MEAN CORPUSCULAR HEMOGLOBIN 29.2 pg (28-32); MEAN CORPUSCULAR HGB CONC 32.4 g/dL (31-35); MEAN CORPUSCULAR VOLUME 89.9 fL (81-99); MONOCYTES # (AUTO) 1.5 (0.2-0.8); MONOCYTES % 12.5 % (4.4-11.3); NEUTROPHILS # (AUTO) 7.1 (2.1-6.9); NEUTROPHILS % 58.5 % (38.7-80.0); PLATELET COUNT 193 x10e3/uL (140-360); RED BLOOD COUNT 4.97 x10e6/uL (4.3-5.7); RED CELL DISTRIBUTION WIDTH 14.3 % (11.7-14.4)
[2018-04-15 13:58] LABS: INR 0.95; PROTHROMBIN TIME 13.6 seconds (11.9-14.5)
[2018-04-15 14:09] LABS: ALANINE AMINOTRANSFERASE 22 IU/L (0-55); ALBUMIN 3.7 g/dL (3.5-5.0); ALBUMIN/GLOBULIN RATIO 1.1 (0.8-2.0); ALKALINE PHOSPHATASE 63 IU/L (40-150); ANION GAP 13.6 mmol/L (8-16); BLOOD UREA NITROGEN 15 mg/dL (7-26); BUN/CREATININE RATIO 18 (6-25); CALCIUM 9.6 mg/dL (8.4-10.2); CARBON DIOXIDE 29 mmol/L (22-29); CHLORIDE 100 mmol/L (98-107); CREATININE, SERUM 0.82 mg/dL (0.72-1.25); EST GLOMERULAR FILTRATION RATE > 60 ML/MIN (60-); GLUCOSE 102 mg/dL (74-118); POTASSIUM 3.6 mmol/L (3.5-5.1); SODIUM 139 mmol/L (136-145)
[2018-04-15 19:03] LABS: EOSINOPHILS % (MANUAL) 2 % (0-7); LYMPHOCYTES % (MANUAL) 25 % (19-48); MONOCYTES % (MANUAL) 13 % (3.4-9.0); NEUTROPHILS % (MANUAL) 55 % (40-74); PLATELET ESTIMATE ADEQUATE; PLATELET MORPHOLOGY COMMENT NORMAL; RBC MORPHOLOGY COMMENT NORMAL
[2018-04-16] VITALS (9 sets, daily range): BP systolic 111–158; BP diastolic 58–76
[~2018-04-16] VITALS: Ht 181.6 cm; Wt 138.8 kg
[~2018-04-16] MED LIST changes: +FENTANYL CITRATE/PF 100MCG/2 ML INJ ONE; +HEPARIN SOD/SOD CHLORIDE 2,000 ML ONE; +IOPAMIDOL 370 MG/ML 200 ML INFUS..BTL INJ ONE; +LIDOCAINE HCL 2% LOCAL 20 ML VIAL ONE; +MIDAZOLAM HCL 2 MG/2 ML VIAL ONE; +SODIUM CHLORIDE 0.9% 1000ML 1,000 ML ONE; +VERAPAMIL HCL 2.5 MG/ML 2 ML VIAL ONE
--- NOTE | 2018-04-16 13:10 | NUR ---
RETURNED TO [facility] P/S DI[facility] RRA APPROACH WITH TR BAND 12ML AIR. POST PROCEDURE ORDERS NOTED. AAOX3, VSS. POST PROCEDURE TEACHING PROVIDED. SITE TO R WRIST C/D/I NO S/S OF BLEEDING OR HEMATOMA NOTED. R RADIAL PULSE PALPABLE, BRISK CAPILLARY REFILL. IV PATENT WITHOUT S/S OF INFILTRATION. DENIED PAIN AT THIS TIME. TOLERATING PO LIQUID INTAKE. CARDIAC TRAY ORDERED. BED IN LOWEST POSITION, SIDE RAILS UP, CALL LIGHT WITHIN REACH. SPOUSE AT BEDSIDE.
--- NOTE | 2018-04-16 13:15 | NUR ---
AAOX3, VSS. SITE TO R WRIST C/D/I NO S/S OF BLEEDING OR HEMATOMA NOTED. R RADIAL PULSE PALPABLE, BRISK CAPILLARY REFILL. DENIED PAIN OR NEEDS AT THIS TIME. TOLERATING PO SOLIDS. BED IN LOWEST POSITION, SIDE RAILS UP, CALL LIGHT WITHIN REACH. SPOUSE AT BEDSIDE.
--- NOTE | 2018-04-16 13:30 | NUR ---
AAOX3, VSS. SITE TO R WRIST C/D/I NO S/S OF BLEEDING OR HEMATOMA NOTED. R RADIAL PULSE PALPABLE, BRISK CAPILLARY REFILL. DENIED PAIN OR NEEDS AT THIS TIME. BED IN LOWEST POSITION, SIDE RAILS UP, CALL LIGHT WITHIN REACH. SPOUSE AT BEDSIDE.
--- NOTE | 2018-04-16 14:00 | NUR ---
AAOX3, VSS. 3ML AIR REMOVED FROM TR BAND. TOLERATED WELL. SITE TO R WRIST REMAINED C/D/I NO S/S OF BLEEDING OR HEMATOMA NOTED. R RADIAL PULSE PALPABLE, BRISK CAPILLARY REFILL. DENIED PAIN OR NEEDS AT THIS TIME. BED IN LOWEST POSITION, SIDE RAILS UP, CALL LIGHT WITHIN REACH. SPOUSE AT BEDSIDE.
--- NOTE | 2018-04-16 14:30 | Operative Report ---
DATE OF PROCEDURE: April 16, 2018 INDICATIONS: Coronary artery disease. Unstable angina. PROCEDURES PERFORMED: 1. Left heart catheterization, selective coronary angiography. 1. Deployment of right wrist transradial band. COMPLICATIONS: None. RECOMMENDATIONS: Medical therapy. Access was obtained in the right radial artery. A 5-Micronesian sheath was placed. Diagnostic coronary angiogram revealed a widely patent right coronary artery. Left main and left anterior descending arteries with approximately 10% luminal irregularities. 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 No critical stenosis or occlusions. LV end-diastolic pressure of 14. No gradient across the aortic valve on pull back. Right wrist sheath was removed, TR band applied. Patient discharged home same day. Job#: [id number]
--- NOTE | 2018-04-16 14:45 | NUR ---
AAOX3, VSS. 3ML AIR AND TR BAND REMOVED. SITE TO R WRIST REMAINED C/D/I NO S/S OF BLEEDING OR HEMATOMA NOTED. SITE COVERED BY STERILE GAUZE AND TEGADERM. R RADIAL PULSE PALPABLE, BRISK CAPILLARY REFILL. WRITTEN AND VERBAL DISCHARGE INSTRUCTIONS PROVIDED. AMBULATED TO RESTROOM WITHOUT COMPLICATION. IV D/C WITH CATHETER INTACT, HEMOSTASIS OBTAINED, SITE COVERED WITH GAUZE AND COBAN. DISCHARGED FROM UNIT BY W/C IN STABLE CONDITION TO V SPOUSE DRIVING.
== END | disposition home or self-care (01) ==
LOC: CATH LAB 10:18
PROVIDERS: ATTEND Internal Medicine Interventional Cardiology
DX: I25.110 Atherosclerotic heart disease of native coronary artery with unstable angina pectoris (principal); I30.0 Acute nonspecific idiopathic pericarditis; I31.3 Pericardial effusion (noninflammatory); I10 Essential (primary) hypertension; E78.5 Hyperlipidemia, unspecified; Z01.812 Encounter for preprocedural laboratory examination; Z79.82 Long term (current) use of aspirin; Z68.36 Body mass index [BMI] 36.0-36.9, adult; Z82.49 Family history of ischemic heart disease and other diseases of the circulatory system
CPT/HCPCS: 36415; 80053; 85025; 85610; 93458; C1887; J2001; J2250; J7030; Q9967

== ENCOUNTER → 2020-05-01 | Outpatient (CLI) | payer OTHER ==
[~2020-05-01] MED LIST changes: +COVID-19 VACC, MRNA(MODERNA)/PF 100 MCG/0.5 ML VIAL IM ONE; -FENTANYL CITRATE/PF 100MCG/2 ML INJ ONE; -HEPARIN SOD/SOD CHLORIDE 2,000 ML ONE; -IOPAMIDOL 370 MG/ML 200 ML INFUS..BTL INJ ONE; -LIDOCAINE HCL 2% LOCAL 20 ML VIAL ONE; -MIDAZOLAM HCL 2 MG/2 ML VIAL ONE; -SODIUM CHLORIDE 0.9% 1000ML 1,000 ML ONE; -VERAPAMIL HCL 2.5 MG/ML 2 ML VIAL ONE
== END ==
LOC: VACCPMC 17:03
DX: Z23 Encounter for immunization (principal); Z20.822 Contact with and (suspected) exposure to COVID-19

== ENCOUNTER → 2020-06-04 | Outpatient (CLI) | payer OTHER | END | DRG 951 | LOC: VACCPMC 10:20 | DX: Z23 Encounter for immunization (principal); Z20.822 Contact with and (suspected) exposure to COVID-19 | CPT/HCPCS: 0012A; 91301 ==

== ENCOUNTER → 2021-01-17 | Outpatient (CLI) | payer BC, OTHER ==
[~2021-01-17] MED LIST changes: -COVID-19 VACC, MRNA(MODERNA)/PF 100 MCG/0.5 ML VIAL IM ONE
== END ==
LOC: VACCPMC 12:00
DX: Z23 Encounter for immunization (principal); Z20.822 Contact with and (suspected) exposure to COVID-19

== ENCOUNTER → 2021-04-25 | Outpatient (CLI) | payer BC, OTHER ==
[~2021-04-25] MED LIST changes: +COVID-19 VACC, MRNA(MODERNA)/PF 100 MCG/0.5 ML VIAL IM ONE
== END ==
LOC: VACCPMC 08:00
DX: Z23 Encounter for immunization (principal); Z20.822 Contact with and (suspected) exposure to COVID-19
CPT/HCPCS: 91301

== ENCOUNTER 2024-09-28 10:38 | Inpatient (IN) | payer BC, OTHER ==
[2024-09-28] VITALS (8 sets, daily range): BP systolic 118–146; BP diastolic 74–86; PULSE 60–65; RESP 18–20; TEMP 97.9–98.8; O2SAT 97–100
[~2024-09-28] VITALS: Ht 180.3 cm; Wt 140.2 kg
[~2024-09-28 10:38] MED LIST changes: -COVID-19 VACC, MRNA(MODERNA)/PF 100 MCG/0.5 ML VIAL IM ONE
[2024-09-28] MEDS ORDERED: SODIUM CHLORIDE FLUSH 10 ML SYR IV PRN (11:00)
[2024-09-28] MEDS: ASPIRIN 81 MG CHEW TAB PO ONE (11:07)
[2024-09-28 11:23] LABS: BASOPHILS % 0.5 % (0.0-1.0); EOSINOPHILS # (AUTO) 0.6 (0.0-0.4); EOSINOPHILS % 7.5 % (0.0-6.0); HEMATOCRIT 48.6 % (38.2-49.6); HEMOGLOBIN 15.3 g/dL (14.0-18.0); LYMPHOCYTES # (AUTO) 1.7 (1.0-3.2); LYMPHOCYTES % 21.3 % (18.0-39.1); MEAN CORPUSCULAR HGB CONC 31.5 g/dL (31-35); MEAN CORPUSCULAR VOLUME 82.7 fL (81-99); MONOCYTES # (AUTO) 0.8 (0.2-0.8); MONOCYTES % 10.4 % (4.4-11.3); NEUTROPHILS # (AUTO) 4.8 (2.1-6.9); NEUTROPHILS % 60.2 % (38.7-80.0); PLATELET COUNT 208 x10e3/uL (140-360); RED BLOOD COUNT 5.88 x10e6/uL (4.3-5.7); RED CELL DISTRIBUTION WIDTH 18.8 % (11.7-14.4); WHITE BLOOD COUNT 7.97 x10e3/uL (4.8-10.8)
[2024-09-28 11:44] LABS: ALBUMIN 3.7 g/dL (3.5-5.0); ANION GAP 15.8 mmol/L (8-16); BILIRUBIN,TOTAL 0.8 mg/dL (0.2-1.2); CALCIUM 9.4 mg/dL (8.4-10.2); CREATININE, SERUM 0.83 mg/dL (0.72-1.25); POTASSIUM 3.8 mmol/L (3.5-5.1); TOTAL PROTEIN 7.4 g/dL (6.5-8.1)
[2024-09-28 11:50] LABS: TROPONIN I 0.009 ng/mL (0-0.300)
[2024-09-28 13:29] LABS: BILIRUBIN,URINE NEGATIVE (NEGATIVE); CLARITY,URINE CLEAR (CLEAR); COLOR,URINE YELLOW (YELLOW); GLUCOSE, URINE 500 (NEGATIVE); KETONES,URINE NEGATIVE (NEGATIVE); LEUKOCYTE ESTERASE ,URINE NEGATIVE (NEGATIVE); NITRITE,URINE NEGATIVE (NEGATIVE); PH,URINE 7 (5 - 7); PROTEIN,URINE DIPSTICK NEGATIVE (NEGATIVE); URINE UROBILINOGEN 0.2 mg/dL (0.2 - 1)
[2024-09-28 13:59] LABS: RBC,URINE 0-5 /HPF (0-5); WBC,URINE (MAN) 0-5 /HPF (0-5)
[2024-09-28 14:00] LABS: BACTERIA,URINE RARE /HPF; EPITHELIAL CELLS,URINE FEW /LPF
[2024-09-28] MEDS ORDERED: SODIUM CHLORIDE FLUSH 10 ML SYR INJ PRN (14:15)
[2024-09-28] MEDS ORDERED: ONDANSETRON HCL INJ 2MG/ML 2ML 2 MG/ML VIAL IV PRN (14:15)
[2024-09-28] MEDS ORDERED: POTASSIUM CHLORIDE 20 MEQ TAB CR PO PRN (15:30)
[2024-09-28] MEDS ORDERED: ALBUTEROL/IPRATROPIUM 3 ML NEB NEB PRN (15:30)
[2024-09-28] MEDS ORDERED: LIDOCAINE 4% PATCH TP PRN (15:30)
[2024-09-28] MEDS ORDERED: ACETAMINOPHEN 325 MG TAB PO PRN (15:30)
[2024-09-28] MEDS ORDERED: DOCUSATE SODIUM 100 MG CAP PO PRN (15:30)
[2024-09-28] MEDS ORDERED: DIPHENHYDRAMINE HCL 25 MG CAP PO PRN (15:30)
[2024-09-28] MEDS ORDERED: HYDRALAZINE HCL 20 MG/ML VIAL IV PRN (15:30)
[2024-09-28] MEDS ORDERED: BENZONATATE 100 MG CAP PO PRN (15:30)
[2024-09-28] MEDS ORDERED: DEXTROSE 50% SYRINGE 50 ML IV PRN (15:30)
[2024-09-28] MEDS ORDERED: SIMETHICONE 80 MG CHEW PO PRN (15:30)
[2024-09-28] MEDS ORDERED: ZETIA10 MG PO (16:00)
[2024-09-28] MEDS ORDERED: FARXIGA5 MG PO (16:01)
[2024-09-28] MEDS ORDERED: MECLIZINE HCL 12.5 MG TAB PO PRN (16:15)
[2024-09-28] MEDS: ENOXAPARIN SOD INJ 40 MG/0.4 ML SYR SC SCH (17:38)
[2024-09-28] MEDS: LISINOPRIL 20 MG TAB PO SCH (18:44)
[2024-09-28] MEDS ORDERED: MELATONIN 5 MG TABLET PO PRN (21:00)
[2024-09-28] MEDS: AMLODIPINE BESYLATE 10 MG TAB PO SCH (21:02)
[2024-09-29] VITALS (9 sets, daily range): BP systolic 129–162; BP diastolic 74–96; PULSE 50–85; RESP 18–20; TEMP 97.6–98.2; O2SAT 94–100
[2024-09-29 05:16] LABS: BASOPHILS # (AUTO) 0.1 (0.0-0.1); BASOPHILS % 0.8 % (0.0-1.0); EOSINOPHILS # (AUTO) 0.8 (0.0-0.4); EOSINOPHILS % 10.2 % (0.0-6.0); HEMOGLOBIN 14.1 g/dL (14.0-18.0); LYMPHOCYTES # (AUTO) 2.4 (1.0-3.2); LYMPHOCYTES % 29.1 % (18.0-39.1); MEAN CORPUSCULAR HEMOGLOBIN 26.1 pg (28-32); MEAN CORPUSCULAR HGB CONC 31.3 g/dL (31-35); MEAN CORPUSCULAR VOLUME 83.3 fL (81-99); MONOCYTES % 11.5 % (4.4-11.3); NEUTROPHILS % 48.2 % (38.7-80.0); PLATELET COUNT 199 x10e3/uL (140-360); RED CELL DISTRIBUTION WIDTH 18.4 % (11.7-14.4); WHITE BLOOD COUNT 8.26 x10e3/uL (4.8-10.8)
[2024-09-29 05:55] LABS: ALBUMIN 3.2 g/dL (3.5-5.0); ANION GAP 14.1 mmol/L (8-16); BILIRUBIN,TOTAL 0.8 mg/dL (0.2-1.2); CALCIUM 8.4 mg/dL (8.4-10.2); CREATININE, SERUM 0.74 mg/dL (0.72-1.25); POTASSIUM 3.1 mmol/L (3.5-5.1); TOTAL PROTEIN 6.3 g/dL (6.5-8.1)
[2024-09-29 06:19] LABS: TROPONIN I 0.012 ng/mL (0-0.300)
[2024-09-29 06:31] LABS: CHOL/HDL RATIO 3.9 (3.9-4.7); MAGNESIUM 2.2 MG/DL (1.3-2.1); PHOSPHORUS 3.4 MG/DL (2.3-4.7)
[2024-09-29 06:52] LABS: THYROID STIMULATING HORMONE 2.213 uIU/mL (0.350-4.940)
[2024-09-29] MEDS: ASPIRIN 81 MG ENTERIC COATED PO SCH (08:43)
[2024-09-29] MEDS: ATORVASTATIN 40 MG TAB PO SCH (08:43)
[2024-09-29] MEDS: PANTOPRAZOLE SOD 40 MG TABEC PO SCH (08:44)
[2024-09-29] MEDS: TAMSULOSIN HCL 0.4 MG CAP PO SCH (08:44)
[2024-09-29] MEDS: HYDROCHLOROTHIAZIDE 25 MG TAB PO SCH (08:44)
[2024-09-29] MEDS: CYANOCOBALAMIN INJ 1,000 MCG/ML VIAL IM SCH (14:45)
[2024-09-29] MEDS: MECLIZINE HCL 12.5 MG TAB PO SCH (14:45)
[2024-09-29] MEDS: SODIUM CHLORIDE 0.9% 1000ML 1,000 ML IV SCH (16:43)
[2024-09-29 16:46] LABS: TROPONIN I 0.018 ng/mL (0-0.300)
[2024-09-30] VITALS (7 sets, daily range): BP systolic 129–166; BP diastolic 76–85; PULSE 53–100; RESP 18–20; TEMP 97.5–98; O2SAT 94–98
[2024-09-30 05:17] LABS: BASOPHILS # (AUTO) 0.1 (0.0-0.1); BASOPHILS % 0.7 % (0.0-1.0); EOSINOPHILS # (AUTO) 0.8 (0.0-0.4); EOSINOPHILS % 9.1 % (0.0-6.0); HEMATOCRIT 44.3 % (38.2-49.6); LYMPHOCYTES # (AUTO) 2.5 (1.0-3.2); LYMPHOCYTES % 28.3 % (18.0-39.1); MEAN CORPUSCULAR HEMOGLOBIN 26.5 pg (28-32); MEAN CORPUSCULAR HGB CONC 31.6 g/dL (31-35); MEAN CORPUSCULAR VOLUME 83.7 fL (81-99); MONOCYTES # (AUTO) 1.1 (0.2-0.8); MONOCYTES % 12.4 % (4.4-11.3); NEUTROPHILS # (AUTO) 4.4 (2.1-6.9); NEUTROPHILS % 49.3 % (38.7-80.0); PLATELET COUNT 198 x10e3/uL (140-360); RED BLOOD COUNT 5.29 x10e6/uL (4.3-5.7); RED CELL DISTRIBUTION WIDTH 18.5 % (11.7-14.4); WHITE BLOOD COUNT 8.82 x10e3/uL (4.8-10.8)
[2024-09-30 05:45] LABS: ANION GAP 15.1 mmol/L (8-16); CALCIUM 8.2 mg/dL (8.4-10.2); CREATININE, SERUM 0.75 mg/dL (0.72-1.25)
[2024-09-30 05:48] LABS: POTASSIUM 3.1 mmol/L (3.5-5.1)
== END 2024-09-30 16:20 | disposition home or self-care (01) | DRG 309 ==
LOC: ER 10:45 → ERHOLD 14:06 → MED/SURG 15:00 → OBSVTOIN 09-30 15:06
PROVIDERS: ADMIT Internal Medicine; ATTEND Internal Medicine
DX: I44.1 Atrioventricular block, second degree (principal); Z68.41 Body mass index [BMI] 40.0-44.9, adult; R00.1 Bradycardia, unspecified; D45 Polycythemia vera; E78.5 Hyperlipidemia, unspecified; E66.01 Morbid (severe) obesity due to excess calories; E11.9 Type 2 diabetes mellitus without complications; I10 Essential (primary) hypertension; N40.0 Benign prostatic hyperplasia without lower urinary tract symptoms; H81.10 Benign paroxysmal vertigo, unspecified ear; R07.9 Chest pain, unspecified; G47.30 Sleep apnea, unspecified; Z79.82 Long term (current) use of aspirin
CPT/HCPCS: 36415; 70450; 70551; 71046; 80048; 80053; 80061; 81001; 82550; 82607; 82948; 83036; 83735; 83880; 84100; 84443; 84484; 85025; 85379; 93005; 93306; 93880; 94760; 94799; 99284; G0378; J1650; J2470; J3420; J7030

== ENCOUNTER → 2024-10-25 | Outpatient (RCR) | payer BC ==
[~2024-10-25] MED LIST changes: +FARXIGA5 MG PO; +ZETIA10 MG PO
== END ==
LOC: PT 10-13 14:22
PROVIDERS: ATTEND Internal Medicine
DX: H81.90 Unspecified disorder of vestibular function, unspecified ear (principal)

== ENCOUNTER 2024-11-19 12:53 | Outpatient (RCR) | payer BC | END 2024-11-25 | LOC: PT 12:53 | PROVIDERS: ATTEND Internal Medicine | DX: H81.90 Unspecified disorder of vestibular function, unspecified ear (principal) ==